=== PATIENT | female | born 1985 | race Caucasian/White ===

== ENCOUNTER 2016-11-28 22:02 | Emergency (ER) | payer OTHER ==
[2016-11-28] MEDS ORDERED: DOXYCYCLINE HYCLATE 100 MG TABLET ONE (22:42)
== END 2016-11-28 22:59 | disposition home or self-care (01) ==
LOC: ED 22:02
DX: R09.89 Other specified symptoms and signs involving the circulatory and respiratory systems (principal); R05 Cough; F17.210 Nicotine dependence, cigarettes, uncomplicated
CPT/HCPCS: 99283 ×2; A9270